=== PATIENT | female | born 1970 | race Hispanic/Latino ===

== ENCOUNTER 2018-10-28 11:28 | Emergency (ER) | payer OTHER ==
[~2018-10-28] VITALS: Ht 167.6 cm; Wt 72.6 kg
--- OUTSIDE RECORDS SUMMARY | 2018-10-28 11:30 | XMS REPORT ---
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
--- OUTSIDE RECORDS SUMMARY | 2018-10-28 11:30 | XMS REPORT ---
Author Author [facility] Address Unknown Phone Unavailable Care Team Providers Care Environmental Services Specialist Name Role Phone Unavailable Unavailable Problems This patient has no known problems. Allergies, Adverse Reactions, Alerts This patient has no known allergies or adverse reactions. Medications This patient has no known medications. Results Test Description Test Time Test Comments Text Results Atomic Results Result Comments BREAST ULTRASOUND BILATERAL 2018-02-25 16:56:30 - DIAG MAMM BILATERAL MELISSA CAD DIGITALBILATERAL DIGITAL DIAGNOSTIC MAMMOGRAM 3D/2D WITH CAD: 02/25/2018CLINICAL: Dense breasts. Digital breast tomosynthesis was performed in addition to routine CC and MLO views. Current mammographic images were evaluated by either a [employer] M-Vu or a [employer]+ ImageChecker CAD (computer aided detection system). Comparison is made to exams dated 02/28/2017 mammogram, 01/20/2016 mammogram, and 07/12/2015 mammogram - [facility]. The tissue of both breasts is heterogeneously dense. This may lower the sensitivity of mammography. No suspicious mass, architectural distortion, malignant type calcification, or lymph node abnormality detected. INCOMPLETE ASSESSMENT: ADDITIONAL IMAGING EVALUATION RECOMMENDEDUltrasound pending for additional evaluation. Resume annual screening mammography in one year. - BREAST ULTRASOUND BILATERALULTRASOUND OF BOTH BREASTS AND BOTH AXILLA: 02/25/2018Comparison is made to exams dated 02/28/2017 mammogram, 01/20/2016 m ammogram, and 07/12/2015 mammogram - [facility]. Real-time ultrasound of both breasts and both axilla was performed. No abnormalities were seen sonographically in either axilla. Benign solid and cystic masses were seen. No evidence of malignancy was seen. Unchanged from th e previous studies. Clinical breast was exam unremarkable. IMPRESSION: BENIGN There is no sonographic evidence of malignancy. Patient has been informed that she has areas of dense breast tissue that could make it difficult to find a small cancer. A screening mammogram and supplemental ultrasound for dense breast tissue is recommended in 1 year.Adrianne Massey M.D. dm/:02/25/2018 16:56:30 Employee Services Manager: Soraida PINEDA, [facility]: BIRADS 1-2 Combo FU Letter Mammogram BI-RADS: 0 Indeterminate Ultrasound BI-RADS: 2 Benign DIAG MAMM BILATERAL MELISSA CAD DIGITAL 2018-02-25 16:56:30 - DIAG MAMM BILATERAL MELISSA CAD DIGITALBILATERAL DIGITAL DIAGNOSTIC MAMMOGRAM 3D/2D WITH CAD: 02/25/2018CLINICAL: Dense breasts. Digital breast tomosynthesis was performed in addition to routine CC and MLO views. Current mammographic images were evaluated by either a [employer] M-Vu or a Appet[employer]+ ImageIBUonlineer CAD (computer aided detection system). Comparison is made to exams dated 02/28/2017 mammogram, 01/20/2016 mammogram, and [facility] The tissue of both breasts is heterogeneously dense. This may lower the sensitivity of mammography. No suspicious mass, architectural distortion, malignant type calcification, or lymph node abnormality detected. INCOMPLETE ASSESSMENT: ADDITIONAL IMAGING EVALUATION RECOMMENDEDUltrasound pending for additional evaluation. Resume annual screening mammography in one year. - BREAST ULTRASOUND BILATERALULTRASOUND OF BOTH BREASTS AND BOTH AXILLA: 02/25/2018Comparison is made to exams dated 02/28/2017 mammogram, 01/20/2016 m ammogram, and [facility]. Real-time ultrasound of both breasts and both axilla was performed. No abnormalities were seen sonographically in either axilla. Benign solid and cystic masses were seen. No evidence of malignancy was seen. Unchanged from th e previous studies. Clinical breast was exam unremarkable.
[2018-10-28] MEDS ORDERED: ONDANSETRON HCL 4 MG ORAL DISINTEGRATING TAB PO NR (12:00)
[2018-10-28] MEDS ORDERED: ACETAMINOPHEN 325 MG TAB PO ONE (12:00)
== END 2018-10-28 14:30 | disposition home or self-care (01) ==
LOC: ER 11:28
DX: R51 Headache (principal); R11.0 Nausea
CPT/HCPCS: 99283; Q0162

== ENCOUNTER → 2021-01-09 | Outpatient (CLI) | payer OTHER ==
[~2021-01-09] MED LIST: COVID-19 VACC, MRNA(MODERNA)/PF 100 MCG/0.5 ML VIAL IM ONE
== END ==
LOC: VACCPMC 01-06 11:47
DX: Z23 Encounter for immunization (principal); Z20.822 Contact with and (suspected) exposure to COVID-19